=== PATIENT | male | born 1995 | race Caucasian/White ===

== ENCOUNTER → 2017-02-01 | Outpatient (CLI) | payer OTHER ==
--- NOTE | 2017-02-01 21:23 | ECHO ---
DATE OF PROCEDURE: 02/01/2017 REFERRING PHYSICIAN: Daren Beltre DO INDICATION: Abnormal ECG. HEIGHT: 168 cm WEIGHT: 66 kg DIMENSIONS: IVS: 1.0 LV: 4.5 LVPW: 0.9 LA: 3.3 Aorta: 2.8 FINDINGS: The study is of good technical quality. Left ventricle is normal size and systolic function, estimated ejection fraction (EF) is 60-65%. Right ventricle is also normal size and systolic function. Both atria appear normal. All four cardiac valves were well seen and appear normal. No pericardial effusion is noted. Inferior vena cava is normal size. Aortic root and aortic arch appear normal. Doppler interrogation reveals no aortic stenosis or insufficiency. There is trace mitral and trace tricuspid insufficiency. Calculated pulmonary artery pressure is within normal limits. Pulmonic valve is functionally competent. Mitral inflow pattern and tissue Doppler imaging of mitral annulus reveal normal diastolic function of left ventricle. CONCLUSIONS: 1. Study is of good technical quality. 2. Normal left ventricle (LV) size, systolic and diastolic function. 3. No significant valvular disease. 4. Normal central venous pressure and likely normal pulmonary artery pressure. 5. Essentially normal echocardiogram. COMMENT: Subacute bacterial endocarditis (SBE) prophylaxis is not recommended.
== END ==
LOC: M CARPUL 07:53
PROVIDERS: ATTEND Family Medicine
DX: R94.31 Abnormal electrocardiogram [ECG] [EKG] (principal)